=== PATIENT | male | born 1965 | race Caucasian/White ===

== ENCOUNTER 2018-09-25 19:10 | Emergency (ER) | payer OTHER ==
[2018-09-25] MEDS ORDERED: KETOROLAC TROMETHAMINE 60 MG/2 ML SDV IM ONE (19:51)
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
--- NOTE | 2018-09-25 20:35 | RADIOLOGY REPORT (SQ) ---
EXAM DESCRIPTION: L SPINE WHOLE COMPLETED DATE/TIME: 09/25/2018 8:16 pm REASON FOR STUDY: back pain COMPARISON: None. NUMBER OF VIEWS: Five views including obliques. TECHNIQUE: AP, lateral, oblique, and sacral radiographic images acquired of the lumbar spine. LIMITATIONS: None. FINDINGS: MINERALIZATION: Normal. SEGMENTATION: Normal. No transitional anatomy. ALIGNMENT: Normal. VERTEBRAE: Maintained height. No fracture or worrisome bone lesion. DISCS: Preserved height. No significant osteophytes or end plate irregularity. POSTERIOR ELEMENTS: Pedicles and facets are intact. No pars defect or posterior arch defects. HARDWARE: None in the spine. PARASPINAL SOFT TISSUES: Normal. PELVIS: Intact as visualized. No fractures or worrisome bone lesions. SI joints intact. OTHER: No other significant finding. IMPRESSION: NORMAL 5 VIEW LUMBAR SPINE. TECHNICAL DOCUMENTATION: JOB ID: [id number] [employer]- All Rights Reserved Reading location - IP/workstation name: [email or web address]
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
[2018-09-25 22:34] VITALS: BP 109/73
== END 2018-09-25 22:00 | disposition home or self-care (01) ==
LOC: ER 19:10
DX: M54.5 Low back pain (principal); G89.29 Other chronic pain; F17.200 Nicotine dependence, unspecified, uncomplicated; J44.9 Chronic obstructive pulmonary disease, unspecified; Z88.5 Allergy status to narcotic agent; Z91.018 Allergy to other foods
CPT/HCPCS: 72110; 99283

== ENCOUNTER 2019-08-28 00:33 | Emergency (ER) | payer OTHER ==
--- NOTE | 2019-08-28 03:06 | ER Document Report ---
HPI - HPI Time Seen by Provider: 08/28/19 02:48 Pain Level: Denies Context: Patient is a 53-year-old male that comes to the emergency department for chief complaint of wanting to be checked out for a bump on his forehead just above his right eyebrow that has been there for several years. He states that sometimes when he presses on it he feels like there is a pressure over the top of his head. He denies tenderness, he denies that it has changed in any way over the past year or 2, he denies any other complaints. He denies visual changes, headaches, difficulty swallowing or breathing, neck swelling, weight loss, night sweats. He states he has a past medical history of hepatitis C and ADHD. - NEURO Neurology: REPORTS: Headache - REPRODUCTIVE Reproductive: DENIES: : Past Medical History - General Information source: Patient - Social History Smoking Status: Current Every Day Smoker Frequency of alcohol use: None Drug Abuse: Marijuana Lives with: Family Family History: COPD, Reviewed & Not Pertinent Patient has suicidal ideation: No Patient has homicidal ideation: No - Past Medical History Cardiac Medical History: Denies: Hx Coronary Artery Disease, Hx Heart Attack, Hx Hypertension Pulmonary Medical History: Reports: Hx COPD Denies: Hx Asthma, Hx Bronchitis, Hx Pneumonia Neurological Medical History: Denies: Hx Cerebrovascular Accident, Hx Seizures Renal/ Medical History: Denies: Hx Peritoneal Dialysis GI Medical History: Reports: Hx Gastroesophageal Reflux Disease, Hx Hepatitis - C Musculoskeletal Medical History: Reports Hx Arthritis Psychiatric Medical History: Reports: Hx Depression Infectious Medical History: Reports: Hx Hepatitis - C Past Surgical History: Reports: Hx Adenoidectomy, Hx Orthopedic Surgery - Immunizations Hx Diphtheria, Pertussis, Tetanus Vaccination: Yes Vertical Provider Document - CONSTITUTIONAL General Appearance: WD/WN, No Apparent Distress, Thin - INFECTION CONTROL TRAVEL OUTSIDE OF THE [place] IN LAST 30 DAYS: No - HEENT HEENT: Atraumatic, Normal ENT Exam, Normocephalic, PERRLA. negative: Conjuctival Injection, Pharyngeal Exudate, Pharyngeal Tenderness, Pharyngeal Erythema, Tympanic Membrane Red, Tympanic Membrane Bulging - NECK Neck: Normal Inspection - RESPIRATORY Respiratory: Breath Sounds Normal, No Respiratory Distress - CARDIOVASCULAR Cardiovascular: Regular Rate, Regular Rhythm - GI/ABDOMEN Gastrointestinal: Abdomen Soft, Abdomen Non-Tender - BACK Back: Normal Inspection - MUSCULOSKELETAL/EXTREMETIES Musculoskeletal/Extremeties: JOSÉ TAM, Non-Tender - NEURO Level of Consciousness: Awake, Alert, Appropriate Motor/Sensory: No Motor Deficit, No Sensory Deficit - DERM Integumentary: Warm, Dry, No Rash. negative: Abscess - There is a spongy, small, mobile area that I can move and lose with patient's eyebrows located above the right eyebrow. Nontender, no concerning findings otherwise. Course - Re-evaluation Re-evalutation: Area is mobile, nontender, appears to be a small benign cyst. No evidence of infection, the area is not solid or immobile and there are no reported symptoms suggesting that this is cancer. There is no skin abnormality either. Patient states satisfaction, discussed follow-up options and return precautions. He states understanding and agreement. - Vital Signs Vital signs: Temp Pulse Resp BP Pulse Ox 98 F 101 H 18 123/77 97 08/28/19 01:05 08/28/19 01:05 08/28/19 01:05 08/28/19 01:05 08/28/19 01:05 Discharge - Discharge Clinical Impression: Facial swelling Condition: Stable Disposition: HOME, SELF-CARE Additional Instructions: Your evaluation is reassuring, this appears to be a simple benign cyst, this can be electively removed, follow-up with the listed referral for additional care if desired. Return for any concerning symptoms including increased swelling, developing pain or redness, or any other concerning or worsening symptoms. Referrals: LEIGHA SULLIVAN DO [ACTIVE STAFF] - Follow up as needed
[2019-08-28 04:16] VITALS: BP 126/85
== END 2019-08-28 04:16 | disposition home or self-care (01) ==
LOC: ER 00:33
DX: R22.0 Localized swelling, mass and lump, head (principal); F17.200 Nicotine dependence, unspecified, uncomplicated; F12.10 Cannabis abuse, uncomplicated; J44.9 Chronic obstructive pulmonary disease, unspecified; R51 Headache
CPT/HCPCS: 99283